=== PATIENT | female | born 1990 | race Caucasian/White ===

== ENCOUNTER → 2022-02-07 15:45 | Outpatient (CLI) | payer MEDICAID, SELFPAY | PROVIDERS: PCP Nurse Practitioner; Visit Provider Nurse Practitioner | DX: N12 Tubulo-interstitial nephritis, not specified as acute or chronic (principal) | CPT/HCPCS: 87086 ==

== ENCOUNTER → 2022-02-12 07:07 | Outpatient (CLI) | payer MEDICAID, SELFPAY | PROVIDERS: PCP Nurse Practitioner; Visit Provider Nurse Practitioner | DX: N12 Tubulo-interstitial nephritis, not specified as acute or chronic (principal) | CPT/HCPCS: 87086 ==

== ENCOUNTER → 2022-02-15 17:15 | Outpatient (CLI) | payer OTHER, SELFPAY ==
[2022-02-18 23:07] LABS: Neisseria gonorrhoeae, NAA Negative (Negative)
== END ==
PROVIDERS: PCP Family Medicine; Visit Provider Family Medicine
DX: R30.0 Dysuria (principal)
CPT/HCPCS: 87086; 87491; 87591

== ENCOUNTER → 2022-02-28 14:19 | Outpatient (CLI) | payer MEDICAID, SELFPAY ==
--- NOTE | 2022-02-28 14:19 | US_ITS ---
FINAL REPORT CLINICAL HISTORY: Pelvic pain FINDINGS: Transvaginal Ultrasound Technique: Transvaginal sonographic images of the pelvis were obtained. Findings: The uterus is normal in size. The endometrium is unremarkable. There are nabothian cysts in the cervix. The right ovary is normal size. The left ovary is normal size. There are small cysts or follicles in both ovaries. There is no significant free fluid. IMPRESSION: No acute process. Reviewed, Interpreted and Dictated by Gilbert Parisi MD Transcribed by Arslan Abarca Authenticated and . [facility]
== END ==
PROVIDERS: PCP Nurse Practitioner; Visit Provider Family Medicine
DX: R10.2 Pelvic and perineal pain (principal); R30.0 Dysuria
CPT/HCPCS: 76830

== ENCOUNTER → 2023-01-02 23:33 | Outpatient (CLI) | payer MEDICAID, SELFPAY ==
[2023-01-02 18:50] LABS: Basophils # 0.1 K/mm3 (0-0.2); Basophils % 0.5 % (0.1-2.0); Eosinophils # 0.2 K/mm3 (0.0-0.4); Eosinophils % 2.2 % (0.1-12.0); Hematocrit 38.6 % (37.0-47.0); Hemoglobin 12.2 g/dL (12.2-16.2); Lymphocytes # 2.4 K/mm3 (0.7-4.5); Mean Corpuscular HGB Conc 31.6 g/dL (31.8-35.4); Mean Corpuscular Hemoglobin 31.5 pg (27.0-31.2); Mean Corpuscular Volume 99.6 fl (81-99); Mean Platelet Volume 9.4 fl (7.4-10.4); Monocytes # 0.6 K/mm3 (0.1-1.0); Monocytes % 6.1 % (1.7-9.3); Neutrophils # 6.4 K/mm3 (1.8-7.8); Neutrophils % 66.1 % (37.0-80.0); Platelet Count 330 K/mm3 (142-424); Red Blood Count 3.88 M/mm3 (4.20-5.40); Red Cell Distribution Width 13.3 % (11.5-17.5); White Blood Count 9.7 K/mm3 (4.8-10.8)
[2023-01-02 18:55] LABS: Alanine Aminotransferase 24 U/L (12-78); Albumin Level 4.1 g/dl (3.5-5.0); Albumin/Globulin Ratio 1.6 (1.1-1.8); Alkaline Phosphatase 83 U/L (38-126); Anion Gap 11.4 mEq/L (5-15); Aspartate Amino Transferase 24 U/L (14-36); Bilirubin,Total 0.3 mg/dl (0.2-1.3); Blood Urea Nitrogen 10 mg/dl (7-17); Calcium 8.9 mg/dl (8.4-10.2); Carbon Dioxide 24 mmol/L (22.0-30.0); Chloride 108 mmol/L (98-107); Estimated Glomerular Filt Rate 98 ml/min (>60); GFR (African American) 118 ML/MIN (>60); Globulin 2.5 g/dL (1.3-3.2); Glucose 89 mg/dl (74-100); Potassium 4.4 mmoL/L (3.5-5.1); Sodium 139 mmol/L (136-145); Total Protein,Serum 6.6 g/dl (6.3-8.2)
[2023-01-02 19:09] LABS: 25-OH Vitamin D, Total 43.4 ng/mL (30-100)
[2023-01-02 19:25] LABS: Thyroid Stimulating Hormone 1.12 uIU/mL (0.465-4.68)
[2023-01-02 19:44] LABS: Vitamin B12 375 pg/mL (239-931)
[2023-01-06 16:06] LABS: Anti-Centromere B Antibodies <0.2 AI (0.0-0.9); Anti-DNA (DS) Ab Qn 2 IU/mL (0-9); Anti-Jo-1 <0.2 AI (0.0-0.9); Anti-Smith Antibody <0.2 AI (0.0-0.9); Antichromatin Antibodies <0.2 AI (0.0-0.9); Antiscleroderma-70 Antibodies <0.2 AI (0.0-0.9); RNP Antibodies <0.2 AI (0.0-0.9); Sjogren's Anti-SS-A <0.2 AI (0.0-0.9); Sjogren's Anti-SS-B <0.2 AI (0.0-0.9)
== END ==
PROVIDERS: PCP Nurse Practitioner; Visit Provider Nurse Practitioner
DX: R42 Dizziness and giddiness (principal); H53.9 Unspecified visual disturbance; L65.9 Nonscarring hair loss, unspecified; R20.2 Paresthesia of skin; Z13.1 Encounter for screening for diabetes mellitus; Z13.29 Encounter for screening for other suspected endocrine disorder; Z00.00 Encounter for general adult medical examination without abnormal findings; R55 Syncope and collapse
CPT/HCPCS: 80053; 82306; 82607; 83036; 84443; 85025; 86225; 86235

== ENCOUNTER → 2023-01-21 08:12 | Outpatient (CLI) | payer MEDICAID, SELFPAY ==
--- NOTE | 2023-01-21 08:14 | CA_ITS ---
APPROVED REPORT EXAM: Comprehensive 2D, Doppler, and color-flow Echocardiogram Exhibits Manager: Melissa Lew RVT Ht: 5 ft 1 in Wt: 137lbs BSA: 1.61 BP: 109/64 mmHg Indications: syncope,dizziness 2D Dimensions LVOT 2.13 cm (M/F) 1.5-2.5 LA Volume 42.40 mL LA Volume Index 26.34 mL/m2 (M/F) 16-34 M-Mode Dimensions RVDd 1.86 cm (0.9-2.6) LA Diam 2.87 cm (1.9-4.0) LVDd 4.47 cm (3.5-5.7) Ao Diam 2.81 cm (2.0-3.7) LVDs 3.34 cm (3.5-5.7) IVSd 0.77 cm (0.6-1.1) PWd 0.53 cm (0.6-1.1) EF (Teich) 50.10% FS 25.30% EDV (Teich) 91.00 mL TAPSE 1.38 (<1.7) ESV (Teich) 45.40 mL LV Diastology E Decel Time 150.00 (160-240 msec) E/A Ratio 0.9 MED E' 12.30 (< 7 cm/sec) E'/MED E' Ratio 5.54 (>14) LAT E' 19.70 (<10 cm/sec) E/LAT E' Ratio 3.46 (>14) Aortic Valve AO Peak GR. 3.80 mmHg Mitral Valve MV E Max Jean. 68.00 (40-130 cm/s) MV A Velocity 73.00 (40-130 cm/s) E/A Ratio 0.93 MV Decel. Time 150.00 (160-240 ms) MV PHT 44.00 ms Pulmonary Valve PV Peak Velocity 72.00 (50-150 cm/s) Tricuspid Valve TR P. Velocity 234.00 cm/s RAP Estimate 10.00 mmHg RVSP 32.00 mmHg Left Ventricle The left ventricle is normal size. Left ventricular systolic function is mildly decreased. There is normal left ventricular wall thickness. There is mild global hypokinesis. The left ventricular diastolic function is normal. LVEF is 45%. Right Ventricle The right ventricle is normal size. The right ventricular systolic function is normal. Atria The left atrium size is normal. The right atrium size is normal. There is no Doppler evidence of interatrial shunt. Aortic Valve The aortic valve is normal in structure. There is no aortic valvular stenosis. No aortic regurgitation is present. Mitral Valve The mitral valve is normal in structure. No evidence of mitral valve stenosis. There is no mitral valve regurgitation noted. Tricuspid Valve The tricuspid valve leaflets are thin and pliable. Trace tricuspid regurgitation. RVSP is normal. Pulmonic Valve The pulmonary valve is normal in structure. Trace pulmonic regurgitation. Great Vessels The aortic root is normal in size. The ascending aorta is not well visualized. IVC is normal in size and collapses >50% with inspiration. Pericardium There is no pericardial effusion. Other Information Study Quality: Fair Conclusion Mild reduction in LV systolic function (LVEF 45%) No significant valvulopathy. Electronically signed by : Magaly Gauthier, 01/21/2023 15:57:48
== END ==
PROVIDERS: PCP Nurse Practitioner; Visit Provider Nurse Practitioner
DX: R42 Dizziness and giddiness (principal); R55 Syncope and collapse
CPT/HCPCS: 93306

== ENCOUNTER → 2023-01-22 16:20 | Outpatient (CLI) | payer MEDICAID, SELFPAY | PROVIDERS: PCP Nurse Practitioner; Visit Provider Nurse Practitioner | DX: R42 Dizziness and giddiness (principal); R55 Syncope and collapse | CPT/HCPCS: 93225 ==

== ENCOUNTER → 2023-02-03 14:56 | Outpatient (CLI) | payer MEDICAID, SELFPAY ==
[2023-02-03 15:44] LABS: Basophils # 0.1 K/mm3 (0-0.2); Basophils % 0.6 % (0.1-2.0); Eosinophils # 0.3 K/mm3 (0.0-0.4); Eosinophils % 4.1 % (0.1-12.0); Hematocrit 43.1 % (37.0-47.0); Hemoglobin 13.8 g/dL (12.2-16.2); Lymphocytes # 2.5 K/mm3 (0.7-4.5); Lymphocytes % 30.7 % (10-50); Mean Corpuscular HGB Conc 31.9 g/dL (31.8-35.4); Mean Corpuscular Hemoglobin 31.5 pg (27.0-31.2); Mean Corpuscular Volume 98.6 fl (81-99); Mean Platelet Volume 7.8 fl (7.4-10.4); Monocytes # 0.4 K/mm3 (0.1-1.0); Monocytes % 5.3 % (1.7-9.3); Neutrophils # 4.8 K/mm3 (1.8-7.8); Neutrophils % 59.3 % (37.0-80.0); Platelet Count 316 K/mm3 (142-424); Red Blood Count 4.37 M/mm3 (4.20-5.40); Red Cell Distribution Width 13.1 % (11.5-17.5); White Blood Count 8.1 K/mm3 (4.8-10.8)
[2023-02-03 16:12] LABS: Chloride 107 mmol/L (98-107); Potassium 4.2 mmoL/L (3.5-5.1); Sodium 139 mmol/L (136-145)
[2023-02-03 16:15] LABS: Alanine Aminotransferase 32 U/L (12-78); Albumin Level 4.1 g/dl (3.5-5.0); Alkaline Phosphatase 84 U/L (38-126); Anion Gap 13.2 mEq/L (5-15); Aspartate Amino Transferase 29 U/L (14-36); Bilirubin,Indirect 0.3 mg/dL (0.0-0.9); Bilirubin,Total 0.3 mg/dl (0.2-1.3); Bilirubin,Unconjugated 0.3 mg/dL (0.0-1.1); Blood Urea Nitrogen 14 mg/dl (7-17); Calcium 9.5 mg/dl (8.4-10.2); Carbon Dioxide 23 mmol/L (22.0-30.0); Cholesterol 172 mg/dl (140-200); Estimated Glomerular Filt Rate 97 ml/min (>60); GFR (African American) 117 ML/MIN (>60); Glucose 95 mg/dl (74-100); Triglycerides 168 mg/dl (30-150); VLDL Cholesterol 34 mg/dL (0-40)
[2023-02-03 16:27] LABS: Direct LDL Cholesterol 91.29 mg/dL (100-129)
[2023-02-03 16:43] LABS: Free T4 (Free Thyroxine) 0.96 ng/dl (0.78-2.19)
[2023-02-03 16:58] LABS: Thyroid Stimulating Hormone 1.82 uIU/mL (0.465-4.68)
[2023-02-03 17:00] LABS: Chol/HDL Ratio 4.3 (1-3.5); HDL Cholesterol 40 mg/dl (40-60)
== END ==
PROVIDERS: PCP Nurse Practitioner; Visit Provider Nurse Practitioner
DX: R06.00 Dyspnea, unspecified (principal); R07.89 Other chest pain; R42 Dizziness and giddiness; R94.30 Abnormal result of cardiovascular function study, unspecified; I11.9 Hypertensive heart disease without heart failure; I63.9 Cerebral infarction, unspecified; E11.9 Type 2 diabetes mellitus without complications
CPT/HCPCS: 36415; 80048; 80061; 80076; 84439; 84443; 85025

== ENCOUNTER → 2023-02-06 07:24 | Outpatient (CLI) | payer MEDICAID, SELFPAY ==
--- NOTE | 2023-02-06 | CA_ITS ---
APPROVED REPORT Exam: Exercise Treadmill Technologist: Lilli Shaver, Ht: 5 ft 1 in Wt: 138 lbs BSA: 1.61 m2 HR: 66 bpm BP: 101/68 mmHg Rhythm: NSR Indications: Syncope - SOB AND CHEST PAIN Medical History Medications: BisOPROLOL,,,,, Allergies: CLINDAMYCIN Stress Test Details Test: Servando HR Resting HR: 88 bpm Max Heart Rate (APMHR): 188 bpm Max HR Achieved: 169 bpm Target HR (85% APMHR): 160 bpm % of APMHR: 90 Recovery HR: 78 bpm HR response to stress: Normal HR response to stress BP Resting BP: 101.0/68 mmHg Max BP: 130/68 mmHg Recovery BP: 107.0/55.0 mmHg BP response to stress: Normal blood pressure response to stress. ECG Resting ECG: NSR Stress EC.[address] depression Arrhythmia: None Recovery ECG: Return to baseline within 1 minute of recovery Recovery Arrhythmia: None Clinical Exercise duration: 10:16 min Highest Stage Achieved: Exercise capacity: 12.8 METs Overall Exercise Capacity for Age: Average Stress ECG Conclusion The patient was able to exercise for a total of 10 minutes, 16 seconds. She achieved a total of 12.8 METS. She has average exercise capacity compared to age and sex matched peers. She has normal HR and BP response to exercise. MAX HR: 169 % OF PM: 90% MAX B/P: 130/68 METS: 12.8 TEST STOPPED DUE TO: SOA, FATIGUE PT HAD DULL ACHING CP SOA 0.[address] DEPRESSION THAT RESOLVED RAPIDLY DURING RECOVERY CONCLUSION NORMAL ST RESPONSE TO EXERCISE. NORMAL EXERCISE CAPACITY. MYOVIEW IMAGES REPORTED SEPARATELY Test Summary REST . . . . . . . Standing REST . . . . . . . Sitting REST 05:26 0.0 0.0 88 . 101/ 68 . . Stage 1 01:00 10.0 1.7 104 . . . . Stage 1 02:00 10.0 1.7 108 . . . . Stage 1 03:00 10.0 1.7 111 . 120/ 70 . . Stage 2 01:00 12.0 2.5 116 . . . . Stage 2 02:00 12.0 2.5 118 . . . . Stage 2 03:00 12.0 2.5 115 . 122/ 62 . . Stage 3 01:00 14.0 3.4 126 . . . . Stage 3 02:00 14.0 3.4 132 . . . . Stage 3 03:00 14.0 3.4 142 . 130/ 68 . . Stage 4 01:00 16.0 4.2 165 . . . . Stage 4 01:16 16.0 4.2 169 . . . Stop exercise at 10:16 RECOVERY 01:00 0.0 0.0 121 . . . . RECOVERY 02:00 0.0 0.0 79 . . . . RECOVERY 03:00 0.0 0.0 82 . 108/ 48 . . RECOVERY 04:00 0.0 0.0 83 . 117/ 54 . . RECOVERY 05:00 0.0 0.0 77 . 107/ 55 . . RECOVERY 05:18 0.0 0.0 78 . 107/ 55 . . Electronically signed by : Magaly Gauthier, 02/10/2023 00:34:14
--- NOTE | 2023-02-06 07:24 | NM_ITS ---
APPROVED REPORT Exam: Nuclear Stress Test Indication: chest pain..soa..palpitations..fatigue..tobacco use Patient Location: Outpatient Stress Tech: Lilli Shaver [place] Tech:Garima SheldonFIFI RT(R)(N) Ht: 5 ft 1 in Wt: 137 lbs Bra Size: 34d HR: 88 bpm BSA: 1.61 m2 Rhythm: NSR TID: 1.12 BMI: 25.8 History: chest pain..soa..palpitations..fatigue..tobacco use Procedure: Patient exercised on Servando protocol 10:16 minutes and sec, resting heart rate 88 bpm, resting blood pressure 101/68 mmHg, with exercise maximum heart rate achived was 169 bpm which is 90 % of the maximum predicted heart rate and blood pressure was 130/68 mmHg. Test was stopped due to fatigue. Patient denied any complaint of chest pain. Patient has Average exercise capacity, achieved 12.8 METs of workload on treadmill, the blood pressure response to exercise was Normal. Cardiac Stress and Resting SPECT Images: Cardiac Stress and Resting SPECT images were obtained using technetium 99m Myoview 30.8 mCi stress and 10.87 mCi at rest. Resting and stress imaging in supine and prone positions demonstrate no evidence of fixed or reversible perfusion defects. Gated imaging demonstrates low-normal global and regional LV systolic function. LVEF is calculated at 51%. Conclusion: No evidence of fixed or reversible perfusion defects. Gated imaging demonstrates low-normal global and regional LV systolic function. LVEF is calculated at 51%. Electronically signed by : Magaly Gauthier, 02/10/2023 00:36:07
== END ==
PROVIDERS: PCP Nurse Practitioner; Visit Provider Nurse Practitioner
DX: R07.89 Other chest pain (principal); R42 Dizziness and giddiness; R94.30 Abnormal result of cardiovascular function study, unspecified
CPT/HCPCS: 78452; 93017; A9502

== ENCOUNTER → 2023-04-18 09:35 | Outpatient (CLI) | payer OTHER, SELFPAY ==
--- NOTE | 2023-04-18 09:36 | MR_ITS ---
APPROVED REPORT Administrative Liaison: CLINICAL INDICATION Cardiomyopathy evaluation (LVEF 45% on TTE) TECHNIQUE Image Acquisition: Cardiac magnetic resonance (CMR) was performed on Siemens Espree MRI 1.5T scanner. Software platform sequences were performed using the Siemens [employer] MR B19 platform. A set of three-plane, low-resolution, large [id number]-teih localizers were initially acquired. Then axial, coronal, sagittal TrueFISP, as well as axial HASTE images, were obtained. These were followed by gated TrueFISP breathold cinematic sequences obtained in the short axis with 8 mm slices and 2 mm gaps, 2-chamber (vertical long axis), 3-chamber, 4-chamber (horizontal long axis). A bolus of contrast was injected intravenously with first-pass sequences obtained in the short axis and four-chamber planes. After approximately 10 minutes, a TI interventional tech sequence was performed to determine the optimal TI time. Using the optimized TI time, delayed contrast enhancement segmented inversion???recovery TurboFLASH sequences were obtained in the short axis, 2-chamber, 3-chamber, and 4-chamber projections. 2D-velocity phase mapping was performed. Functional parameters were calculated by offline analysis on an independent workstation ([employer], [employer]). Contrast: ProHance??? (Gadoteridol) FINDINGS MORPHOLOGY AND FUNCTION Left ventricle: The left ventricle is normal in size. The indexed left ventricular end-diastolic volume (LVEDVi) is 80 ml/m2 (reference range 57-105 ml/m2 in males, 56-96 ml/m2 in females). Normal left ventricular systolic function is present. There is normal left ventricular wall thickness. There are no regional wall motion abnormalities noted. LVEF is calculated at 63.8% (reference range 57-77%). Right ventricle: The right ventricle is normal in size. The indexed right ventricular end-diastolic volume (RVEDVi) is 72 ml/m2 (reference range 61-121 ml/m2 in males, 48-112 ml/m2 in females). Normal right ventricular systolic function is present. RVEF is calculated at 53% (reference range 52-72% in males, 51-71% in females). Atria: The left atrium is normal in size. The maximum indexed left atrial volume is 25 ml/m2 (reference range 26-52 ml/m2 in males, 27-53 ml/m2 in females). The right atrium is normal in size. The maximum indexed right atrial volume is 21 ml/m2 (reference range 18-90 ml/m2). Aorta: The diameter of the aortic annulus is normal, measuring 25 mm (coronal view reference range 21-30 mm in males, 19-27 mm in females). The diameter of the aortic sinus is normal, measuring 28 mm (coronal view reference range 25-42 mm in males, 24-36 mm in females). The diameter of the sinotubular junction is normal, measuring 23 mm (coronal view reference range 18-32 mm in males, 18-28 mm in females). The diameters of the ascending and descending thoracic aorta are normal. Main pulmonary artery: The main pulmonary artery diameter is normal. Pericardium: The pericardial thickness is normal. The pericardial thickness measures 1.9 cm (normal < 4.0 cm). There is no pericardial effusion. VALVES The valvular morphologies in the visualized sequences appear normal. There is no significant valvular stenosis or regurgitation of the mitral, aortic, tricuspid, or pulmonic valve noted visually. Systolic anterior motion of the mitral valve is not visualized. Ratio of pulmonary to systemic flow, Qp:Qs ratio = 0.9 (normal < or = 1.2), demonstrating no evidence of hemodynamically significant shunt. TISSUE CHARACTERIZATION Resting Perfusion: Normal myocardial blood flow at rest. No evidence of resting hypoperfusion. Myocardial Fibrosis and/or edema: Normal gadolinium kinetics are present. No evidence of late gadolinium enhancement is noted, consistent with
== END ==
LOC: RAD 09:36
PROVIDERS: PCP Nurse Practitioner; Visit Provider Nurse Practitioner
DX: R07.89 Other chest pain (principal); R42 Dizziness and giddiness; R55 Syncope and collapse; R94.30 Abnormal result of cardiovascular function study, unspecified
CPT/HCPCS: 75561; A9576

== ENCOUNTER 2023-07-07 20:37 | Outpatient (CLI) | payer OTHER, SELFPAY | END 2023-07-07 23:59 | LOC: LAB.DROPOF 20:37 | PROVIDERS: PCP Nurse Practitioner; Visit Provider Nurse Practitioner | DX: R30.0 Dysuria (principal) | CPT/HCPCS: 87086 ==

== ENCOUNTER 2023-08-26 21:00 | Outpatient (CLI) | payer OTHER, SELFPAY ==
[2023-08-26 19:29] LABS: Basophils # 0.1 K/mm3 (0-0.2); Basophils % 1.6 % (0.1-2.0); Eosinophils # 0.1 K/mm3 (0.0-0.4); Eosinophils % 1.9 % (0.1-12.0); Hematocrit 45.3 % (37.0-47.0); Hemoglobin 14.5 g/dL (12.2-16.2); Lymphocytes # 1.6 K/mm3 (0.7-4.5); Lymphocytes % 26.4 % (10-50); Mean Corpuscular Hemoglobin 32.8 pg (27.0-31.2); Mean Corpuscular Volume 102.4 fl (81-99); Mean Platelet Volume 10.1 fl (7.4-10.4); Monocytes # 0.3 K/mm3 (0.1-1.0); Monocytes % 5.2 % (1.7-9.3); Neutrophils # 3.9 K/mm3 (1.8-7.8); Neutrophils % 64.9 % (37.0-80.0); Platelet Count 354 K/mm3 (142-424); Red Blood Count 4.42 M/mm3 (4.20-5.40); White Blood Count 6.1 K/mm3 (4.8-10.8)
[2023-08-26 19:34] LABS: Chloride 108 mmol/L (98-107)
[2023-08-26 19:35] LABS: Potassium 4.1 mmoL/L (3.5-5.1); Sodium 139 mmol/L (136-145)
[2023-08-26 19:37] LABS: Alanine Aminotransferase 26 U/L (12-78); Alkaline Phosphatase 85 U/L (38-126); Anion Gap 10.1 mEq/L (5-15); Aspartate Amino Transferase 27 U/L (14-36); Bilirubin,Total 0.4 mg/dl (0.2-1.3); Blood Urea Nitrogen 11 mg/dl (7-17); Carbon Dioxide 25 mmol/L (22.0-30.0); Estimated Glomerular Filt Rate 97 ml/min (>60); GFR (African American) 117 ML/MIN (>60)
[2023-08-26 19:38] LABS: Albumin Level 4.5 g/dl (3.5-5.0); Albumin/Globulin Ratio 1.7 (1.1-1.8); Calcium 9.3 mg/dl (8.4-10.2); Globulin 2.6 g/dL (1.3-3.2); Glucose 95 mg/dl (74-100); Total Protein,Serum 7.1 g/dl (6.3-8.2)
[2023-08-26 19:44] LABS: C-Reactive Protein 0.8 mg/L (0-4)
[2023-08-26 19:53] LABS: 25-OH Vitamin D, Total 42.7 ng/mL (30-100)
[2023-08-26 20:05] LABS: Erythrocyte Sedimentation Rate 12 mm/hr (0-20)
[2023-08-26 21:44] LABS: Vitamin B12 450 pg/mL (239-931)
[2023-08-28 14:13] LABS: Anti-Centromere B Antibodies <0.2 AI (0.0-0.9); Anti-DNA (DS) Ab Qn 1 IU/mL (0-9); Anti-Jo-1 <0.2 AI (0.0-0.9); Anti-Smith Antibody <0.2 AI (0.0-0.9); Antichromatin Antibodies <0.2 AI (0.0-0.9); Antiscleroderma-70 Antibodies <0.2 AI (0.0-0.9); RNP Antibodies <0.2 AI (0.0-0.9); Sjogren's Anti-SS-A <0.2 AI (0.0-0.9); Sjogren's Anti-SS-B <0.2 AI (0.0-0.9)
== END 2023-08-26 23:59 ==
LOC: LAB.DROPOF 21:00
PROVIDERS: PCP Nurse Practitioner; Visit Provider Nurse Practitioner
DX: G50.0 Trigeminal neuralgia (principal); R51.9 Headache, unspecified
CPT/HCPCS: 80053; 82306; 82607; 84443; 85025; 85651; 86140; 86225; 86235

== ENCOUNTER 2023-09-04 09:51 | Outpatient (CLI) | payer OTHER, SELFPAY ==
--- NOTE | 2023-09-04 09:54 | XR_ITS ---
FINAL REPORT CLINICAL HISTORY: pre-syncope, leukocytosis FINDINGS: TWO-VIEW CHEST The heart size is normal. The mediastinum is normal. The lungs are clear. There is no pneumothorax. IMPRESSION: No acute cardiopulmonary process. Reviewed, Interpreted and Dictated by Gilbert Parisi MD Transcribed by Nazia Roche Authenticated and [facility]
[2023-09-04 10:20] LABS: Adenovirus,PCR Not Detected (NotDetected); Coronavirus 19, PCR Not Detected (NotDetected); Coronavirus NL63 Not Detected (NotDetected); Coronavirus OC43 Not Detected (NotDetected); Coronovirus HKU1,PCR Not Detected (NotDetected); Human Metapneumovirus Not Detected (NotDetected); Influenza A, PCR Not Detected (NotDetected); Influenza AH1, 2009 Not Detected (NotDetected); Influenza AH1, PCR Not Detected (NotDetected); Influenza AH3,PCR Not Detected (NotDetected); Influenza B, PCR Not Detected (NotDetected); Parainfluenza 1, PCR Not Detected (NotDetected); Parainfluenza 2, PCR Not Detected (NotDetected); Parainfluenza 3, PCR Not Detected (NotDetected); Parainfluenza 4, PCR Not Detected (NotDetected); Respiratory Syncytial Virus Not Detected (NotDetected); Rhinovirus/Enterovirus Not Detected (NotDetected)
[2023-09-04 10:32] LABS: Basophils # 0.2 K/mm3 (0-0.2); Basophils % 1.3 % (0.1-2.0); Eosinophils # 0.3 K/mm3 (0.0-0.4); Eosinophils % 1.7 % (0.1-12.0); Hematocrit 46.6 % (37.0-47.0); Hemoglobin 14.8 g/dL (12.2-16.2); Lymphocytes # 4.8 K/mm3 (0.7-4.5); Lymphocytes % 31.5 % (10-50); Mean Corpuscular HGB Conc 31.8 g/dL (31.8-35.4); Mean Corpuscular Hemoglobin 32.6 pg (27.0-31.2); Mean Corpuscular Volume 102.6 fl (81-99); Monocytes # 0.9 K/mm3 (0.1-1.0); Monocytes % 5.7 % (1.7-9.3); Neutrophils # 9.2 K/mm3 (1.8-7.8); Neutrophils % 59.7 % (37.0-80.0); Platelet Count 361 K/mm3 (142-424); Red Blood Count 4.54 M/mm3 (4.20-5.40); Red Cell Distribution Width 13.8 % (11.5-17.5); White Blood Count 15.3 K/mm3 (4.8-10.8)
[2023-09-04 10:37] LABS: MANUAL DIFFERENTIAL MANUAL DIFFERENTIAL (MANUAL DIFF)
[2023-09-04 10:48] LABS: Lymphocytes % 36 % (10-50); Monocytes % 7 % (2-9); Neutrophils % 57 % (42-76); Total Cells Counted 100
[2023-09-04 10:49] LABS: Platelet Estimate Normal; RBC Morphology Normal
[2023-09-04 11:01] LABS: Erythrocyte Sedimentation Rate 5 mm/hr (0-20)
[2023-09-04 11:10] LABS: Chloride 106 mmol/L (98-107); Potassium 4.1 mmoL/L (3.5-5.1); Sodium 137 mmol/L (136-145)
[2023-09-04 11:12] LABS: Blood Urea Nitrogen 15 mg/dl (7-17); Estimated Glomerular Filt Rate 83 ml/min (>60); GFR (African American) 101 ML/MIN (>60)
[2023-09-04 11:13] LABS: Alanine Aminotransferase 41 U/L (12-78); Albumin Level 3.6 g/dl (3.5-5.0); Albumin/Globulin Ratio 1.4 (1.1-1.8); Alkaline Phosphatase 87 U/L (38-126); Anion Gap 7.1 mEq/L (5-15); Aspartate Amino Transferase 25 U/L (14-36); Bilirubin,Total 0.3 mg/dl (0.2-1.3); Calcium 8.9 mg/dl (8.4-10.2); Carbon Dioxide 28 mmol/L (22.0-30.0); Globulin 2.5 g/dL (1.3-3.2); Glucose 90 mg/dl (74-100); Magnesium 2.1 mg/dl (1.6-2.3); Phosphorous 4.1 mg/dl (2.5-4.5); Total Protein,Serum 6.1 g/dl (6.3-8.2)
[2023-09-04 11:18] LABS: C-Reactive Protein 0.3 mg/L (0-4)
[2023-09-04 12:12] LABS: Coronavirus 229E Detected (NotDetected)
[2023-09-05 16:34] LABS: Lyme Ab CIA Negative (Negative)
== END 2023-09-04 23:59 ==
LOC: LAB 09:52
PROVIDERS: PCP Nurse Practitioner; Visit Provider Nurse Practitioner
DX: R55 Syncope and collapse (principal); D72.829 Elevated white blood cell count, unspecified; Z79.899 Other long term (current) drug therapy
CPT/HCPCS: 36415; 71046; 80053; 83735; 84100; 85007; 85025; 85651; 86140; 86618; 87632; 87635

== ENCOUNTER 2023-12-01 14:32 | Outpatient (CLI) | payer OTHER, SELFPAY ==
[2023-12-01 14:40] LABS: MANUAL DIFFERENTIAL MANUAL DIFFERENTIAL (MANUAL DIFF)
[2023-12-01 15:19] LABS: Basophils # 0.1 K/mm3 (0-0.2); Basophils % 1.1 % (0.1-2.0); Eosinophils # 0.3 K/mm3 (0.0-0.4); Eosinophils % 2.7 % (0.1-12.0); Hematocrit 38.9 % (37.0-47.0); Hemoglobin 12.7 g/dL (12.2-16.2); Lymphocytes # 2.1 K/mm3 (0.7-4.5); Lymphocytes % 23.2 % (10-50); Mean Corpuscular HGB Conc 32.5 g/dL (31.8-35.4); Mean Corpuscular Volume 101.3 fl (81-99); Mean Platelet Volume 8.5 fl (7.4-10.4); Monocytes # 0.6 K/mm3 (0.1-1.0); Monocytes % 6.2 % (1.7-9.3); Neutrophils # 6.1 K/mm3 (1.8-7.8); Neutrophils % 66.9 % (37.0-80.0); Platelet Count 313 K/mm3 (142-424); Red Blood Count 3.84 M/mm3 (4.20-5.40); Red Cell Distribution Width 14.2 % (11.5-17.5); White Blood Count 9.1 K/mm3 (4.8-10.8)
[2023-12-01 15:45] LABS: Eosinophils % 2 % (0-3); Lymphocytes % 31 % (10-50); Monocytes % 5 % (2-9); Neutrophils % 58 % (42-76); Platelet Estimate Normal; Total Cells Counted 100
[2023-12-01 15:46] LABS: Anisocytosis 1+; Macrocytosis 1+
[2023-12-01 15:54] LABS: C-Reactive Protein 4.2 mg/L (0-4)
[2023-12-01 15:56] LABS: Erythrocyte Sedimentation Rate 15 mm/hr (0-20)
[2023-12-01 16:57] LABS: Vitamin B12 409 pg/mL (239-931)
== END 2023-12-01 23:59 | disposition home or self-care (01) ==
LOC: LAB 14:36
PROVIDERS: PCP Nurse Practitioner; Visit Provider Specialist
DX: G50.0 Trigeminal neuralgia (principal); D72.829 Elevated white blood cell count, unspecified; D75.89 Other specified diseases of blood and blood-forming organs
CPT/HCPCS: 36415; 82607; 82746; 85007; 85014; 85018; 85048; 85049; 85651; 86140; 87529

== ENCOUNTER 2023-12-16 16:37 | Outpatient (CLI) | payer BC, SELFPAY ==
[2023-12-16 19:04] LABS: Alanine Aminotransferase 34 U/L (12-78); Albumin Level 4.6 g/dl (3.5-5.0); Albumin/Globulin Ratio 1.6 (1.1-1.8); Alkaline Phosphatase 90 U/L (38-126); Anion Gap 10.6 mEq/L (5-15); Aspartate Amino Transferase 29 U/L (14-36); Bilirubin,Total 0.4 mg/dl (0.2-1.3); Blood Urea Nitrogen 12 mg/dl (7-17); Calcium 9.6 mg/dl (8.4-10.2); Carbon Dioxide 28 mmol/L (22.0-30.0); Chloride 105 mmol/L (98-107); Estimated Glomerular Filt Rate 83 ml/min (>60); GFR (African American) 101 ML/MIN (>60); Globulin 2.8 g/dL (1.3-3.2); Glucose 90 mg/dl (74-100); Potassium 3.6 mmoL/L (3.5-5.1); Sodium 140 mmol/L (136-145); Total Protein,Serum 7.4 g/dl (6.3-8.2)
[2023-12-16 19:34] LABS: Thyroid Stimulating Hormone 1.54 uIU/mL (0.465-4.68)
[2023-12-16 22:38] LABS: Free T4 (Free Thyroxine) 0.92 ng/dl (0.78-2.19)
[2023-12-18 13:12] LABS: Anti-Centromere B Antibodies <0.2 AI (0.0-0.9); Anti-DNA (DS) Ab Qn 1 IU/mL (0-9); Anti-Jo-1 <0.2 AI (0.0-0.9); Anti-Smith Antibody <0.2 AI (0.0-0.9); Antichromatin Antibodies <0.2 AI (0.0-0.9); Antiscleroderma-70 Antibodies <0.2 AI (0.0-0.9); RNP Antibodies <0.2 AI (0.0-0.9); Sjogren's Anti-SS-A <0.2 AI (0.0-0.9); Sjogren's Anti-SS-B <0.2 AI (0.0-0.9)
== END 2023-12-16 23:59 | disposition home or self-care (01) ==
LOC: LAB.DROPOF 12-17 11:20
PROVIDERS: PCP Nurse Practitioner; Visit Provider Nurse Practitioner
DX: G50.0 Trigeminal neuralgia (principal); R20.2 Paresthesia of skin
CPT/HCPCS: 80053; 84439; 84443; 86225; 86235

== ENCOUNTER 2023-12-23 14:07 | Outpatient (CLI) | payer BC, SELFPAY ==
[2023-12-23 14:59] LABS: Basophils # 0.1 K/mm3 (0-0.2); Basophils % 1.1 % (0.1-2.0); Eosinophils # 0.3 K/mm3 (0.0-0.4); Eosinophils % 3.7 % (0.1-12.0); Hematocrit 38.4 % (37.0-47.0); Hemoglobin 12.3 g/dL (12.2-16.2); Lymphocytes # 1.5 K/mm3 (0.7-4.5); Lymphocytes % 18.5 % (10-50); Mean Corpuscular HGB Conc 32.1 g/dL (31.8-35.4); Mean Corpuscular Hemoglobin 32.5 pg (27.0-31.2); Mean Corpuscular Volume 101.3 fl (81-99); Mean Platelet Volume 8.2 fl (7.4-10.4); Monocytes # 0.4 K/mm3 (0.1-1.0); Monocytes % 5.1 % (1.7-9.3); Neutrophils # 5.9 K/mm3 (1.8-7.8); Neutrophils % 71.6 % (37.0-80.0); Platelet Count 337 K/mm3 (142-424); Red Blood Count 3.79 M/mm3 (4.20-5.40); Red Cell Distribution Width 13.7 % (11.5-17.5); White Blood Count 8.3 K/mm3 (4.8-10.8)
[2023-12-25 14:18] LABS: Peripheral Smear Review Scanned Result
== END 2023-12-23 23:59 | disposition home or self-care (01) ==
LOC: LAB 14:08
PROVIDERS: PCP Nurse Practitioner; Visit Provider Internal Medicine Medical Oncology
DX: D75.89 Other specified diseases of blood and blood-forming organs (principal)
CPT/HCPCS: 36415; 85025

== ENCOUNTER 2024-01-01 07:00 | Outpatient (CLI) | payer BC, SELFPAY ==
--- NOTE | 2024-01-01 07:33 | MR_ITS ---
FINAL REPORT TECHNIQUE: Multiplanar MR, without and with contrast administration CLINICAL HISTORY: headache, neuralgia, BUE/BLE parasthesias COMPARISON: 08/27/2023 FINDINGS: Diffusion sequences show no signal abnormalities to indicate acute infarct. The brain parenchyma is homogeneous with normal signal pattern. Ventricles are normal. No edema or hemorrhage is seen. Major vessel flow-voids are intact. Following contrast administration, there is no mass or abnormal parenchymal enhancement. IMPRESSION: Unremarkable MR evaluation of the brain, without and with contrast Reviewed, Interpreted and Dictated by Sheba Dick MD Transcribed by Nazia Roche Authenticated and [facility]
[2024-01-01] MEDS: GADOTERIDOL INJ 20ML SYRINGE 14 ML IV (08:09)
[2024-01-01] MEDS: SODIUM CHLORIDE 0.9% 10ML SYR (RAD ONLY) 10 ML IV ×2 (08:09→09:23)
--- NOTE | 2024-01-01 09:00 | CT_ITS ---
FINAL REPORT TECHNIQUE: Oral and IV contrast enhanced exam This study was performed with techniques to keep radiation doses as low as reasonably achievable, (ALARA). Individualized dose reduction techniques using automated exposure control or adjustment of mA and/or kV according to the patient's size were employed. CLINICAL HISTORY: abdominal pain, nausea COMPARISON: None FINDINGS: Abdomen: Lung bases are clear. The gallbladder has been surgically resected. Liver has an unremarkable CT appearance. The spleen, pancreas and adrenal glands are unremarkable. Kidneys show no mass or obstruction. No bowel obstruction or fluid collection is seen. Pelvis: The appendix is borderline enlarged, measuring up to 7.5 mm in diameter. Would favor this is a normal variant given the lack of inflammatory change surrounding the appendix. The uterus is mildly heterogeneous, and likely small fibroids are present. The cervix is enlarged measuring up to 49 mm in diameter. Would consider Pap smear if one has not been performed recently. Pelvic bowel loops are unremarkable. No fluid collection or adenopathy is seen. IMPRESSION: Appendix borderline enlarged, measuring up to 7.5 mm, favor normal variant given lack of adjacent inflammatory change. Bowel appears unremarkable. Cervical enlargement up to 49 mm in diameter, consider a Pap smear if one has not been performed recently. Reviewed, Interpreted and Dictated by Sheba Dick MD Transcribed by Starla Lomas Authenticated and [facility]
--- NOTE | 2024-01-01 09:21 | HMH.ITSTN ---
Patient was in waiting room for a few minutes before order put in. Came from MRI, but corporation secretary did not put order in or let me know patient was here.
[2024-01-01] MEDS: IOPAMIDOL-370 (76%);100ML BOTTLE 75 ML IV (09:23)
== END 2024-01-01 23:59 | disposition home or self-care (01) ==
LOC: RAD 07:00
PROVIDERS: PCP Nurse Practitioner; Visit Provider Nurse Practitioner
DX: G50.0 Trigeminal neuralgia (principal); R20.2 Paresthesia of skin; R10.9 Unspecified abdominal pain
CPT/HCPCS: 70553; 74177; A9576; Q9967

== ENCOUNTER → 2024-01-26 07:19 | Outpatient (CLI) | payer BC, SELFPAY | LOC: SL 07:20 | PROVIDERS: PCP Nurse Practitioner; Visit Provider Physician Assistant | DX: G47.33 Obstructive sleep apnea (adult) (pediatric) (principal) | CPT/HCPCS: G0399 ==

== ENCOUNTER 2024-02-05 16:12 | Outpatient (CLI) | payer BC, SELFPAY ==
[2024-02-12 03:45] LABS: Arsenic, Blood 4 ug/L (0-9); Lead, Blood <1.0 ug/dL (0.0-3.4); Mercury, Blood <1.0 ug/L (0.0-14.9)
== END 2024-02-05 23:59 | disposition home or self-care (01) ==
LOC: LAB 16:13
PROVIDERS: PCP Nurse Practitioner; Visit Provider Nurse Practitioner
DX: R20.2 Paresthesia of skin (principal); R23.4 Changes in skin texture; R55 Syncope and collapse
CPT/HCPCS: 82175; 83655; 83825

== ENCOUNTER 2024-02-15 19:18 | Emergency (ER) | payer BC, SELFPAY ==
[2024-02-15 19:19] VITALS: BP 114/65; PULSE 81; RESP 18; TEMP 36.4; O2SAT 94; BMI 28.9
--- NOTE | 2024-02-15 19:38 | ECG_ITS ---
APPROVED REPORT Exam: Resting ECG HR:76 bpm ECG Measurements Heart Rate 76 AXES SD 163 P 77 QRSd 97 QRS 70 QT 385 T 72 QTc 416 Conclusion Sinus rhythm Electronically signed by : OSMAN YUNG, 02/15/2024 23:10:33
--- NOTE | 2024-02-15 19:39 | CT_ITS ---
PROCEDURE INFORMATION: Exam: CT Abdomen And Pelvis With Contrast Exam date and time: 02/15/2024 8:21 PM Age: 34 years old Clinical indication: Abdominal pain; Additional info: Severe abd pain TECHNIQUE: Imaging protocol: Computed tomography of the abdomen and pelvis with contrast. Radiation optimization: All CT scans at this facility use at least one of these dose optimization techniques: automated exposure control; mA and/or kV adjustment per patient size (includes targeted exams where dose is matched to clinical indication); or iterative reconstruction. Contrast material: ISOVUE; Contrast volume: 75 ml; Contrast route: IV; COMPARISON: CT ABDOMEN PELVIS W CON 01/01/2024 9:07 AM FINDINGS: Lungs: Clear basilar lung parenchyma. Pleural spaces: No pleural fluid. Heart: Normal heart size. Liver: Normal configuration. Homogeneous parenchyma. Gallbladder and biliary ducts: Prior cholecystectomy. No biliary tree dilation or high-density retained stones appreciated. Pancreas: Normal. No ductal dilation. Spleen: Normal. No splenomegaly. Adrenal glands: Normal configuration. Kidneys and ureters: Bilateral intrarenal stones. No renal obstruction, solid mass, or features of pyelonephritis. Stomach and bowel: Postprandial stomach. Normal caliber small bowel. Distal colonic is decompressed without significant mucosal enhancement or mural thickening. Appendix: Appendix is mildly dilated without significant inflammatory change, stable in appearance from prior. Intraperitoneal space: No free air. No significant fluid collection. Vasculature: Normal caliber arterial structures. Lymph nodes: No enlarged lymph nodes. Urinary bladder: Unremarkable as visualized. Reproductive: Physiologic appearance for age. Bones/joints: No fracture or destructive lesion. Soft tissues: Unremarkable. IMPRESSION: 1. There is mild dilation of the appendix, but appearance is stable from prior exam. No periappendiceal inflammatory change. 2. Decompressed distal colon is nonspecific but can be seen with early colitis. 3. Bilateral intrarenal stones, but no ureteral stones are evident.
[2024-02-15 19:47] LABS: Appearance,Urine CLEAR (Clear); Bilirubin,Urine Negative (Negative); Blood, Urine Negative (Negative); Color,Urine YELLOW (Yellow); Glucose,Urine (UA) Negative (Negative); Ketones,Urine Negative (Negative); Leukocyte Esterase,Urine Negative (Negative); Microscopic, Urine URINE MICROSCOPIC (MICROSCOPIC); Nitrate,Urine Negative (Negative); PH,Urine 6.5 (5.0-8.5); Protein,Urine Negative (Negative); Urobilinogen,Urine 0.2 EU/dl (0.2)
[2024-02-15] MEDS: ONDANSETRON 4MG/2ML VIAL 4 MG IV (19:48)
[2024-02-15] MEDS: MORPHINE 4MG/ML SYRINGE 4 MG IV (19:49)
[2024-02-15 19:50] LABS: Basophils # 0.1 K/mm3 (0-0.2); Basophils % 1.1 % (0.1-2.0); Eosinophils # 0.3 K/mm3 (0.0-0.4); Eosinophils % 2.8 % (0.1-12.0); Hematocrit 41.5 % (37.0-47.0); Lymphocytes # 2.2 K/mm3 (0.7-4.5); Lymphocytes % 22.7 % (10-50); Mean Corpuscular HGB Conc 31.4 g/dL (31.8-35.4); Mean Corpuscular Hemoglobin 32.4 pg (27.0-31.2); Mean Corpuscular Volume 103.3 fl (81-99); Monocytes # 0.6 K/mm3 (0.1-1.0); Monocytes % 5.6 % (1.7-9.3); Neutrophils # 6.7 K/mm3 (1.8-7.8); Neutrophils % 67.9 % (37.0-80.0); Platelet Count 327 K/mm3 (142-424); Red Blood Count 4.02 M/mm3 (4.20-5.40); Red Cell Distribution Width 13.5 % (11.5-17.5); White Blood Count 9.9 K/mm3 (4.8-10.8)
[2024-02-15 19:52] LABS: Albumin Level 4.4 g/dl (3.5-5.0); Chloride 110 mmol/L (98-107); Sodium 140 mmol/L (136-145)
[2024-02-15 19:53] LABS: Potassium 3.7 mmoL/L (3.5-5.1)
--- NOTE | 2024-02-15 19:54 | ED_ITS ---
Discharge Plan Disposition Patient Disposition: Home, Self-Care Prescriptions Prescriptions: New esomeprazole magnesium 20 mg capsule,delayed release(DR/EC) 20 mg PO DAILY 42 Days Qty: 42 1RF No Action carbamazepine 100 mg tablet,chewable 300 mg PO DAILY MDD 300 mg Qty: 120 4RF Rx Instructions: 100 mg po qam and 200 mg po qhs bisoprolol fumarate 5 mg tablet 2.5 mg PO DAILY 30 Days Qty: 30 2RF Referrals Follow up/Referrals: Bailee Spencer APRN [Primary Care Provider] - See instructions Activity Restrictions/Add. Instructions Additional Instructions/Restrictions: Call your family doctor to establish care for this visit to the emergency department and schedule follow-up within 48 hours to ensure improvement. If you have any worsening of your condition or any other concerning signs or symptoms, return to the emergency department or your primary care doctor for further evaluation. Acid medication each night for the next 6 weeks while trying to avoid NSAIDs, alcohol, carbonated beverages, and caffeine. Clinical Impressions Clinical Impression: Acute epigastric pain Instructions Patient Instructions: DI for Acute Abdominal Pain Print Language Print Language: Austrian Discharge ED Provider: Pj Maya General Adult HPI General Chief complaint: Abdominal Pain Stated complaint: abd pain, diarrhea Time Seen by Provider: 02/15/24 19:27 Mode of Arrival: Ambulatory Source of Information: Patient Limitations: No Limitations Description of Symptoms (Recalled from ER Triage Doc. by RN): Patient presented to the ED for abd pain. Patient states around 1300 today after eating she suddently started having diarrhea and abd pain but shortly after eased up and went away. Around 1700, patient states the pain came back and was worse rating 10/10 sharp pain but intermittent about every 5-10 minutes. Abd pain is epigastric area and radiates to left side. No N/V. History of Present Illness HPI narrative: Please note that above description of symptoms, in this electronic medical record under categorization of recalled from ER triage doctor by RN are reflective of an initial nursing assessment, however, is not reflective of my full history and physical exam that was personally taken and clarified. Consequentially, this preceding description of symptoms, which may include the patient's categorized chief complaint in the EMR, do not reflect my personal clinical impression, and the ultimate description of history of present illness and patient stated complaints should be deferred to this section of the note. Unless stated otherwise or congruent with this section of the note, additional signs, symptoms, or incongruence should be interpreted as inaccurate with my clinical impression. Related Data Previous Rx's ?Medication ?Instructions ?Recorded carbamazepine 100 mg chewable 300 mg (3 x 100 mg) PO DAILY 12/01/23 tablet Trigeminal neuralgia #120 tabs bisoprolol fumarate 5 mg tablet 2.5 mg (1/2 x 5 mg) PO DAILY 30 12/24/23 days #30 tabs esomeprazole magnesium 20 mg 20 mg PO DAILY 6 weeks #42 caps 02/15/24 capsule,delayed release Allergies Allergy/AdvReac Type Severity Reaction Status Date / Time clindamycin AdvReac Verified 02/05/24 15:57 [facility] Disclaimer: The information contained in this section may have been updated after the patient was seen, as this information can be updated by other users. Medical History Peeling skin Complaint of paresthesia Unexplained night sweats SOSA (obstructive sleep apnea) Palpitations Arm paresthesia, right Arm paresthesia, left Pre-syncope Leukocytosis Trigeminal neuralgia of right side of face Cardiac LV ejection fraction of 40-49% Episode of syncope Encounter for annual health examination Right renal stone Right renal stone Dysuria Pelvic pain Hypothyroid Pain in the abdomen Surgical History History of cholecystectomy History of Family History Other Coronary artery disease Social History Smoking Status: Current every day smoker alcohol intake: current alcohol intake frequency: holidays/special occasions only substance use type: denies use current occupational status: employed Travel in the last 8 weeks: None household members: children housing: house marital status: number of children: 1 ROS Obtained: Yes All systems reviewed & no additional complaints except as documented Physical Exam General General appearance: alert and in no apparent distress Head Head exam: atraumatic and normocephalic Eye Eye exam: Present normal appearance, PERRL and EOMI Neck Neck exam: Present normal inspection, full ROM and trachea midline Respiratory Respiratory exam: Present normal lung sounds bilaterally; Absent respiratory distress, wheezes, stridor, accessory muscle use or prolonged expiratory phase Cardiovascular Cardiovascular exam: Present regular rate, normal rhythm and other (Pulses equal symmetric in upper and lower extremities) Abdominal Exam Abdominal exam: Present soft and tenderness; Absent distention or pulsatile mass Abdominal tenderness: Present epigastrium and mild Extremities Exam Extremities exam: Absent edema Back Exam Back exam: Present CVA tenderness (L); Absent CVA tenderness (R) Neurological Exam Neurological exam: Present alert, oriented X3 and CN II-XII intact; Absent motor sensory deficit Skin Skin exam: Present warm and dry; Absent diaphoresis or erythema Medical Decision Making Medical Records Medical records reviewed: Yes I reviewed the patient's medical records. Vern Inquiry Pt receiving controlled substance: No Vern was queried for this patient: No Vital Signs: 02/15/24 19:19 02/15/24 20:00 Temperature 97.5 F L Temperature Source Oral Pulse Rate 69 Pulse Rate [Right Brachial] 81 Respiratory Rate 18 Blood Pressure 128/87 Blood Pressure [Right Arm] 114/65 Blood Pressure Mean [Right Arm] 81 Blood Pressure Source [Right Arm] Automatic Cuff Blood Pressure Position [Right Arm] Sitting 02 Sat by Pulse Oximetry 94 L 81 L Oxygen Delivery Method Room Air Lab Data Lab Results 02/15/24 19:30: Urine Color Yellow, Urine Appearance Clear, Urine pH 6.5, Ur Specific [place] 1.010, Urine Protein Negative, Urine Glucose (UA) Negative, Urine Ketones Negative, Urine Blood Negative, Urine Nitrate Negative, Urine Bilirubin Negative, Urine Urobilinogen 0.2, Ur Leukocyte Esterase Negative, Urine RBC None, Urine WBC Occasional, Ur Squamous Epith Cells 3-5, Urine Bacteria Trace 02/15/24 19:40: WBC 9.9, RBC 4.02 L, Hgb 13.0, Hct 41.5, MCV 103.3 H, MCH 32.4 H , MCHC 31.4 L, RDW 13.5, Plt Count 327, MPV 8.0, Neut % (Auto) 67.9, Lymph % (Auto) 22.7, Power % (Auto) 5.6, Eos % (Auto) 2.8, Baso % (Auto) 1.1, Neut # (Auto) 6.7, Lymph # (Auto) 2.2, Power # (Auto) 0.6, Eos # (Auto) 0.3, Baso # (Auto) 0.1, ESR 9, APTT 28.8, Sodium 140, Potassium 3.7, Chloride 110 H, Carbon Dioxide 26, Anion Gap 7.7, BUN 9, Creatinine 0.70, Estimated Creat Clear 125, Estimated GFR 96, Est GFR ( Amer) 117, Glucose 83, Hemoglobin A1c 5.1, Calcium 8.7, Magnesium 1.9, Total Bilirubin 0.4, AST 31, ALT 37, Alkaline Phosphatase 83, Troponin I < 0.01, C-Reactive Protein 1.9, Total Protein 7.1, Albumin 4.4, Globulin 2.7, Albumin/Globulin Ratio 1.6, Lipase 70, HCG, Quant < 2 02/15/24 19:40 02/15/24 19:40 Orders (Tests/Meds): ED MEDICATIONS Generic Name Dose Route Start Last Admin Trade Name Freq PRN Reason Stop Dose Admin Sodium Chloride 10 ml 02/15/24 20:28 02/15/24 20:28 Sodium Chloride 0.9% 10ml Syr (Rad Only) IV 03/16/24 20:27 10 ml NEEDED PRN Administration Maintain IV Site Discontinued Medications Generic Name Dose Route Start Last Admin Trade Name Freq PRN Reason Stop Dose Admin Iopamidol 75 ml 02/15/24 20:28 02/15/24 20:28 Iopamidol-370 (76%);100ml Bottle IV 02/15/24 20:29 75 ml ONCE ONE Administration Ketorolac Tromethamine 15 mg 02/15/24 20:21 02/15/24 20:25 Ketorolac 30mg/Ml Vial IV 02/15/24 20:22 15 mg ONCE ONE Administration Morphine Sulfate 4 mg 02/15/24 19:38 02/15/24 19:49 Morphine 4mg/Ml Syringe IV 02/15/24 19:39 4 mg ONCE ONE Administration Ondansetron HCl 4 mg 02/15/24 19:38 02/15/24 19:48 Ondansetron 4mg/2ml Vial IV 02/15/24 19:39 4 mg ONCE ONE Administration ORDERS Category Date Time Status CT abdomen pelvis w con Stat Cat Scan 02/15/24 19:39 Completed CRP [C-Reactive Protein] Stat Lab 02/15/24 19:40 Completed Complete Blood Count Auto Diff Stat Lab 02/15/24 19:40 Completed Comprehensive Metabolic Panel Stat Lab 02/15/24 19:40 Completed Diarrhea 6-11 Panel, Cdiff PCR Stat Lab 02/15/24 19:39 Ordered ESR [Erythrocyte Sedimentation Rate] Stat Lab 02/15/24 19:40 Completed HCG,Quantitative Stat Lab 02/15/24 19:40 Completed Hemoglobin A1C Stat Lab 02/15/24 19:40 Completed Lactic Acid Stat Lab 02/15/24 19:38 Ordered Lipase Stat Lab 02/15/24 19:40 Completed Magnesium Stat Lab 02/15/24 19:40 Completed PTT [Activated Partial Thrombo Time] Stat Lab 02/15/24 19:40 Completed Troponin I Q3H Lab 02/15/24 22:45 Ordered Troponin I Q3H Lab 02/16/24 01:45 Ordered Troponin I Stat Lab 02/15/24 19:40 Completed Urinalysis and Microscopic Stat Lab 02/15/24 19:30 Completed Medical Decision Narrative: 34-year-old female with a history of multitude of neurologic complaints without underlying cause, cholecystectomy, section presenting with abdominal pain. Patient states that abdominal pain started after eating around 1 PM today, 02/14. Shortly after that, had nonbloody, not mucousy diarrhea. Shortly after that around 5 PM, patient began having epigastric abdominal pain that radiates around her left side into her back. States that it is 10 out of 10, sharp, nauseated with vomiting. No fevers or chills, urinary symptoms, or any other concerns. Has not noticed anything that makes it any better or worse. History was obtained via conversation with patient. On arrival, patient hemodynamically stable, alert, oriented x4, appropriate, GCS 15, moving all extremities spontaneously, pupils equal and reactive to light. Full physical exam performed and significant for 34-year-old female who does not appear to be in any acute distress. Stating she has 10 out of 10 abdominal pain. Abdomen is soft, nondistended, appears to be mildly tender in epigastrium. Also has left flank tenderness, not right flank tenderness. No overlying skin changes. No evidence of palpable hernia. Normotensive, nontachycardic, nontachypneic. Well-appearing overall. Differential includes PUD, gastritis, enteritis, gastroenteritis, pancreatitis, SBO, colitis, diverticulitis, nephrolithiasis, UTI, , appendicitis, hepatitis, torsion, less likely aortic pathology, mesenteric ischemia among others. Patient placed on continuous cardiac monitoring and continuous pulse ox with initial blood pressure 114/65, heart rate 81, saturation 94% on room air. Independent interpretation of EKG shows sinus rhythm 76 beats a minute with [place] interval 163, QRS 97, QTc 416. [place] normal. Patient was given morphine and Zofran for symptomatic management and correction of underlying abnormalities. Workup independently interpreted and significant for nonactionable CBC or chemistry, lipase negative, hCG negative. Patient's urinalysis without concern for UTI. On independent interpretation of imaging, no acute intra-abdominal pathology. See radiology read for full review of final results. On reevaluation, patient resting much more comfortably after medicine. She was also given Protonix 40 mg, concern for gastritis. Given patient presentation, workup, history, this most likely represents infectious gastroenteritis. Because patient has had this pain previously and this is a worse iteration, I feel she may have chronic gastritis in the setting of GERD. Esomeprazole sent for home-going. Because patient at baseline without signs or symptoms of clinical decompensation, deemed appropriate for discharge. Results were relayed to patient who voiced understanding and were agreeable to outpatient management and follow up. I discussed my clinical impression with patient and answered all questions. At this time, the evidence for any other entities in the differential is insufficient to warrant any further testing or ED observation. This was explained as well. Advisory was given that persistent or worsening symptoms require further evaluation. I confirmed the understanding of this discussion. Surfboard Designer disclaimer Much of this encounter note is an electronic strain technician spoken language to printed text. Electronic strain technician of the spoken language may permit errors. Although I have reviewed the note, some errors may still exist. Critical Care Critical Care Time Critical Care Time: No
[2024-02-15 19:55] LABS: Alanine Aminotransferase 37 U/L (12-78); Albumin/Globulin Ratio 1.6 (1.1-1.8); Alkaline Phosphatase 83 U/L (38-126); Anion Gap 7.7 mEq/L (5-15); Aspartate Amino Transferase 31 U/L (14-36); Bilirubin,Total 0.4 mg/dl (0.2-1.3); Blood Urea Nitrogen 9 mg/dl (7-17); Calcium 8.7 mg/dl (8.4-10.2); Carbon Dioxide 26 mmol/L (22.0-30.0); Creatinine Clearance Estimated 125 mL/min (50-200); Estimated Glomerular Filt Rate 96 ml/min (>60); GFR (African American) 117 ML/MIN (>60); Globulin 2.7 g/dL (1.3-3.2); Glucose 83 mg/dl (74-100); Lipase 70 U/L (23-300); Total Protein,Serum 7.1 g/dl (6.3-8.2)
[2024-02-15 19:56] LABS: Magnesium 1.9 mg/dl (1.6-2.3)
[2024-02-15 19:59] LABS: Activated Partial Thrombo Time 28.8 seconds (22.8-30.6)
[2024-02-15 20:00] VITALS: BP 128/87; PULSE 69; O2SAT 81
[2024-02-15 20:01] LABS: Bacteria,Urine Trace /lpf; WBC,Urine Occasional #/hpf (0-3)
[2024-02-15 20:08] LABS: Troponin I < 0.01 ng/ml (0.00-0.034)
[2024-02-15 20:15] LABS: HCG,Quantitative < 2 mIU/ml (0-5.42); Hemoglobin A1C 5.1 % (4.0-6.0)
[2024-02-15 20:18] LABS: C-Reactive Protein 1.9 mg/L (0-4)
[2024-02-15] MEDS: KETOROLAC 30MG/ML VIAL 15 MG IV (20:25)
[2024-02-15] MEDS: SODIUM CHLORIDE 0.9% 10ML SYR (RAD ONLY) 10 ML IV (20:28)
[2024-02-15] MEDS: IOPAMIDOL-370 (76%);100ML BOTTLE 75 ML IV (20:28)
[2024-02-15 20:53] LABS: Erythrocyte Sedimentation Rate 9 mm/hr (0-20)
[2024-02-15] MEDS: PANTOPRAZOLE 40MG TABLET 40 MG PO (22:04)
[2024-02-15 22:09] VITALS: BP 112/64; PULSE 72; RESP 18; TEMP 36.6; O2SAT 99
== END 2024-02-15 22:11 | disposition home or self-care (01) ==
PROVIDERS: Emergency Provider Emergency Medicine; PCP Nurse Practitioner
DX: R10.13 Epigastric pain (principal); R19.7 Diarrhea, unspecified
CPT/HCPCS: 74177; 80053; 81001; 83036; 83690; 83735; 84484; 84702; 85025; 85651; 85730; 86140; 93005; 96374; 96375; 99285; J1885; J2270; J2405; Q9967

== ENCOUNTER 2024-08-25 16:05 | Outpatient (CLI) | payer OTHER, SELFPAY ==
[2024-08-25 18:39] LABS: Coronavirus 19, PCR Not Detected (NotDetected); Human Rhinovirus Not Detected (NotDetected); Influenza A, PCR Not Detected (NotDetected); Influenza B, PCR Not Detected (NotDetected); Respiratory Syncytial Virus Not Detected (NotDetected)
== END 2024-08-25 23:59 | disposition home or self-care (01) ==
LOC: LAB.DROPOF 08-26 10:27
PROVIDERS: PCP Nurse Practitioner; Visit Provider Nurse Practitioner
DX: J02.9 Acute pharyngitis, unspecified (principal); R51.9 Headache, unspecified; R53.83 Other fatigue
CPT/HCPCS: 87631

== ENCOUNTER 2024-10-02 16:15 | Outpatient (CLI) | payer BC, SELFPAY ==
[2024-10-02 16:49] LABS: Basophils # 0.1 K/mm3 (0-0.2); Basophils % 0.7 % (0.1-2.0); Eosinophils # 0.1 Kmm3 (0.0-0.4); Eosinophils % 1.2 % (0.1-12.0); Hematocrit 38.2 % (37.0-47.0); Hemoglobin 12.8 g/dL (12.2-16.2); Lymphocytes # 2.3 K/mm3 (0.7-4.5); Lymphocytes % 26.3 % (10-50); Mean Corpuscular HGB Conc 33.5 g/dL (31.8-35.4); Mean Corpuscular Hemoglobin 32.2 pg (27.0-31.2); Mean Corpuscular Volume 96.2 fl (81-99); Mean Platelet Volume 10.2 fl (7.4-10.4); Monocytes # 0.6 K/mm3 (0.1-1.0); Monocytes % 7.2 % (1.7-9.3); Neutrophils # 5.5 K/mm3 (1.8-7.8); Neutrophils % 64.1 % (37.0-80.0); Nucleated Red Blood Cells # 0 10^3/uL; Nucleated Red Blood Cells % 0 %; Platelet Count 317 K/mm3 (142-424); Red Blood Count 3.97 M/mm3 (4.20-5.40); Red Cell Distribution Width 12.3 % (11.5-17.5); Red Cell Distribution Width-SD 43.6 fL; White Blood Count 8.6 K/mm3 (4.8-10.8)
[2024-10-02 17:29] LABS: Albumin Level 4.2 g/dl (3.5-5.0); Chloride 107 mmol/L (98-107); Sodium 138 mmol/L (136-145)
[2024-10-02 17:32] LABS: Alanine Aminotransferase 27 U/L (12-78); Albumin/Globulin Ratio 1.8 (1.1-1.8); Alkaline Phosphatase 80 U/L (38-126); Aspartate Amino Transferase 25 U/L (14-36); Bilirubin,Total 0.2 mg/dl (0.2-1.3); Blood Urea Nitrogen 9 mg/dl (7-17); Carbon Dioxide 25 mmol/L (22.0-30.0); Estimated Glomerular Filt Rate 115 ml/min (>60); GFR (African American) 139 ML/MIN (>60); Globulin 2.3 g/dL (1.3-3.2); Total Protein,Serum 6.5 g/dl (6.3-8.2)
[2024-10-02 17:33] LABS: Glucose 92 mg/dl (74-100)
== END 2024-10-02 23:59 | disposition home or self-care (01) ==
PROVIDERS: PCP Nurse Practitioner; Visit Provider Specialist
DX: G50.0 Trigeminal neuralgia (principal)
CPT/HCPCS: 36415; 80053; 85025

== ENCOUNTER 2025-04-28 13:53 | Emergency (ER) | payer BC, SELFPAY ==
[2025-04-28 13:57] VITALS: BP 107/80; PULSE 96; RESP 18; TEMP 36.5; O2SAT 99; BMI 25.4
[2025-04-28 14:06] VITALS: BP 111/70; PULSE 94; O2SAT 97
[2025-04-28 14:15] VITALS: BP 103/62; PULSE 92; O2SAT 97
[2025-04-28 14:19] LABS: Microscopic, Urine URINE MICROSCOPIC (MICROSCOPIC)
--- NOTE | 2025-04-28 14:19 | ED_ITS ---
<Statement entered by Raffi Estrada MD - 04/29/25 11:56> I was consulted by the LAWSON, and we discussed the complexity of the problems being addressed. I approve the treatment and management plan for this patient's care in the emergency department, thus performing a substantive portion of the medical decision making. Raffi Estrada MD Discharge Plan Disposition Chief Complaint: Vaginal Bleeding Prescriptions Prescriptions: No Action carbamazepine 100 mg tablet,chewable See Rx Instructions .ROUTE .COMPLEX Qty: 270 3RF Dose Instruction: CHEW AND SWALLOW 1 TAB (100 MG) EVERY MORNING AND 2 TABS (200 MG) AT BEDTIME- MAX DOSE 3 TABS DAILY Rx Instructions: CHEW AND SWALLOW 1 TAB (100 MG) EVERY MORNING AND 2 TABS (200 MG) AT BEDTIME- MAX DOSE 3 TABS DAILY Referrals Follow up/Referrals: Bailee Spencer APRN [Primary Care Provider, Family Practice] - See instructions Print Language Print Language: Japanese Discharge ED Provider: Raffi Estrada General Adult HPI General Chief complaint: Vaginal Bleeding Stated complaint: lower back pain, heavy bleeding Time Seen by Provider: 04/28/25 14:06 Mode of Arrival: Ambulatory Source of Information: Patient Description of Symptoms (Recalled from ER Triage Doc. by RN): patient presents for heavy than normal menstrual cycle that is causing dizziness and chills . rogers stated her normal periods are light and i could go up to 8 hours before changing a tampon . her currenct cycle she states she is going through super tampons every 15 minutes and super plus tampons every 30 minutes . she states the blood is dark, not bright red. she is having pelvic pain and lower abdominal pain. History of Present Illness HPI narrative: 35-year-old female presents for heavy menstrual bleeding with clots. She is having chills, nausea, dizziness and slight confusion. She says that typically her.'s are pretty light and only take 1 tampon every 6-8 hours. She is now going through 1 super plus tampon every 30 minutes. She says this started with pain Friday and Friday then her bleeding started on Friday with low back pain. She says she is clotting a lot today more than yesterday. Related Data Previous Rx's ?Medication ?Instructions ?Recorded carbamazepine 100 mg chewable See Rx Instructions .Rou te 04/06/25 tablet .COMPLEX #270 tabs Allergies Allergy/AdvReac Type Severity Reaction Status Date / Time clindamycin AdvReac Verified 04/06/25 08:24 [facility] Disclaimer: The information contained in this section may have been updated after the patient was seen, as this information can be updated by other users. Medical History Peeling skin Complaint of paresthesia Unexplained night sweats SOSA (obstructive sleep apnea) Palpitations Arm paresthesia, right Arm paresthesia, left Pre-syncope Leukocytosis Trigeminal neuralgia of right side of face Stable Cardiac LV ejection fraction of 40-49% Episode of syncope Encounter for annual health examination Right renal stone Right renal stone Dysuria Pelvic pain Hypothyroid Pain in the abdomen Surgical History S/P appendectomy History of appendectomy History of cholecystectomy History of Family History Other Coronary artery disease Social History Smoking Status: Light tobacco smoker alcohol intake: current alcohol intake frequency: holidays/special occasions only substance use type: denies use current occupational status: employed Travel in the last 8 weeks?: None household members: children housing: house marital status: number of children: 1 Have you lived/traveled outside [place] in past 30 days?: No Contact w/someone who lives/traveled outside [place] past 30 days?: No Exposure to someone with infectious disease in past 14 days?: No Do you have a fever (greater than 100.4 F or 38 C)?: No Have you tested positive for COVID-19?: No Exposed to someone with COVID-19 in past 14 days?: No Do you have a sore throat?: No Do you have a cough?: No Do you have any weakness?: No Do you have any diarrhea?: No Are you experiencing any unusual bleeding?: No Do you have any muscle aches/pain?: No Do you have any abdominal pain?: No Are you experiencing loss of taste or smell?: No Other Medical History Have you received the Flu Vaccine for this season: No Have you received the Pneumonia Vaccine: No ROS Obtained: Yes Systems reviewed as appropriate & no additional complaints except as documented Constitutional Constitutional: Reports as per HPI Physical Exam General General appearance: alert and in no apparent distress Head Head exam: normocephalic Eye Eye exam: Present PERRL and EOMI ENT ENT exam: Present normal oropharynx and mucous membranes moist Neck Neck exam: Present full ROM and trachea midline Respiratory Respiratory exam: Present normal lung sounds bilaterally Cardiovascular Cardiovascular exam: Present regular rate, normal rhythm, normal heart sounds, +S1 and +S2 Abdominal Exam Abdominal exam: Present soft and normal bowel sounds Extremities Exam Extremities exam: Present normal inspection, full ROM and normal capillary refill Neurological Exam Neurological exam: Present alert and oriented X3 Skin Skin exam: Present warm and dry Medical Decision Making Medical Records Screening: Per USPSTF and CDC recommendations, given the prevalence of disease in our region, it is our hospital?s policy to screen for HIV and viral Hepatitis for all patients aged 18 and over and those with ongoing risk factors. Vern Inquiry Pt receiving controlled substance: No Vern was queried for this patient: No Vital Signs: 04/28/25 13:57 04/28/25 14:06 04/28/25 14:15 Temperature 97.7 F Temperature Source Oral Pulse Rate 94 H 92 H Pulse Rate [Right Radial] 96 H Respiratory Rate 18 Blood Pressure 111/70 103/62 L Blood Pressure [Right Arm] 107/80 L Blood Pressure Mean [Right Arm] 89 Blood Pressure Source [Right Arm] Automatic Cuff Blood Pressure Position [Right Arm] Sitting 02 Sat by Pulse Oximetry 99 97 97 Oxygen Delivery Method Room Air Room Air Room Air 04/28/25 15:15 04/28/25 15:30 Temperature Temperature Source Pulse Rate 95 H 84 Pulse Rate [Right Radial] Respiratory Rate Blood Pressure 103/74 L 106/62 L Blood Pressure [Right Arm] Blood Pressure Mean [Right Arm] Blood Pressure Source [Right Arm] Blood Pressure Position [Right Arm] 02 Sat by Pulse Oximetry 97 98 Oxygen Delivery Method Lab Data Lab Results 04/28/25 14:02: Urine Color Yellow, Urine Appearance Clear, Urine pH 6.0, Ur Specific [place] 1.010, Urine Protein Negative, Urine Glucose (UA) Negative, Urine Ketones Negative, Urine Blood 1+ A, Urine Nitrate Negative, Urine Bilirubin Negative, Urine Urobilinogen 0.2, Ur Leukocyte Esterase Negative, Urine RBC Occasional, Urine WBC None, Ur Squamous Epith Cells 5-10, Urine Bacteria Trace, Urine HCG, Qual Negative 04/28/25 14:30: WBC 6.9, RBC 3.97 L, Hgb 12.7, Hct 38.9, MCV 98.0, MCH 32.0 H, MCHC 32.6, RDW 12.6, Plt Count 304, MPV 10.2, Neut % (Auto) 59.7, Lymph % (Auto) 29.5, [place] % (Auto) 7.4, Eos % (Auto) 2.3, Baso % (Auto) 0.7, Neut # (Auto) 4.1, Lymph # (Auto) 2.0, [place] # (Auto) 0.5, Eos # (Auto) 0.2, Baso # (Auto) 0.1, PT 10.6, INR 0.95, APTT 27.4, Sodium 138, Potassium 3.8, Chloride 106, Carbon Dioxide 25, Anion Gap 10.8, BUN 9, Creatinine 0.70, Estimated Creat Clear 109, Estimated GFR 96, Est GFR ( Amer) 116, Glucose 111 H, Calcium 9.1, Magnesium 2.1, Total Bilirubin 0.2, AST 23, ALT 17, Alkaline Phosphatase 94, Troponin I < 0.01, Total Protein 7.0, Albumin 4.6, Globulin 2.4, A lbumin/Globulin Ratio 1.9 H, Lipase 63, Blood Type O Positive, Antibody Screen Negative 04/28/25 14:30 04/28/25 14:30 Orders (Tests/Meds): ED MEDICATIONS Discontinued Medications Generic Name Dose Route Start Last Admin Trade Name Freq PRN Reason Stop Dose Admin Acetaminophen 1,000 mg 04/28/25 14:14 04/28/25 15:08 Acetaminophen 1,000mg/100ml Vial IV 04/28/25 14:15 1,000 mg ONCE ONE Administration Sodium Chloride 1,000 mls @ 999 mls/hr 04/28/25 14:14 04/28/25 15:07 Sod Chlor 0.9% 1000ml Bag IV 04/28/25 15:14 999 mls/hr .Q1H1M ONE Administration Ketorolac Tromethamine 30 mg 04/28/25 14:14 04/28/25 15:07 Ketorolac 30mg/Ml Vial IV 04/28/25 14:15 30 mg ONCE ONE Administration ORDERS Category Date Time Status Type and Screen Stat BBK 04/28/25 14:30 Completed US transvaginal Stat Exams 04/28/25 14:22 Completed CBC [Complete Blood Count Auto Diff] Stat Lab 04/28/25 14:30 Completed Comprehensive Metabolic Panel Stat Lab 04/28/25 14:30 Completed Lipase Stat Lab 04/28/25 14:30 Completed Magnesium Stat Lab 04/28/25 14:30 Completed PT INR [Prothrombin Time INR] Stat Lab 04/28/25 14:30 Completed PTT [Activated Partial Thrombo Time] Stat Lab 04/28/25 14:30 Completed Trop I [Troponin I] Stat Lab 04/28/25 14:30 Completed Troponin I Q3H Lab 04/28/25 17:15 Ordered Troponin I Q3H Lab 04/28/25 20:15 Ordered Urinalysis and Microscopic Stat Lab 04/28/25 14:02 Completed Urine , HCG Qual. Stat Lab 04/28/25 14:02 Completed Medical Decision Narrative: patient is a 35-year-old female presenting to the emergency department for evaluation of heavy menstrual bleeding. Patient is hemodynamically stable and nontoxic-appearing upon arrival, afebrile. Differential diagnosis includes anemia, dysfunctional uterine bleeding, among others. Workup will be conducted with hematologic labs, specific imaging, provocative tests. Initial inventions include crystalloid bolus, analgesics, antibiotics. Initial workup reviewed by ia hematologic labs are remarkable for white count was 6.9, H&H were stable at 12.7 and 38.9, BUN and creatinine were normal troponin was less than 0.01 urine had 1+ blood and it. Patient had a normal ultrasound. Patient's vitals are stable at this time. Discussed with Dr. Estrada about the initial workup. Discussed with Dr. Basilio concerning the results and plan for home. We will give a trial of NSAIDs and send her home and have her follow-up closely with her ACCORDION REPAIRER. Critical Care Critical Care Time Critical Care Time: No
--- NOTE | 2025-04-28 14:22 | US_ITS ---
PROCEDURE INFORMATION: Exam: US Duplex Artery and Vein of the Abdominal and/or Reproductive Organs. Complete Ovaries Exam date and time: 04/28/2025 2:31 PM Age: 35 years old Clinical indication: Other: Bleeding; Additional info: Heavy bleeding TECHNIQUE: Imaging protocol: Real-time duplex ultrasound scan of the arterial and venous flow with color Doppler flow and spectral waveform analysis with image documentation. Duplex exam was performed to evaluate for torsion and other vascular conditions. COMPARISON: CT ABDOMEN PELVIS W CON 02/16/2024 7:26 AM FINDINGS: Right ovary/adnexa: Right ovary is normal in size for age. Color and spectral Doppler demonstrates normal ovarian arterial and venous blood flow. Left ovary/adnexa: Left ovary is normal in size for age. Color and spectral Doppler demonstrates normal ovarian arterial and venous blood flow. IMPRESSION: Normal ovarian Doppler exam. No evidence of torsion. PROCEDURE INFORMATION: Exam: US Pelvis, Transvaginal, Non-Obstetric Exam date and time: 04/28/2025 2:31 PM Age: 35 years old Clinical indication: Other: Bleeding; Additional info: Heavy bleeding TECHNIQUE: Imaging protocol: Real-time transvaginal pelvic (non-obstetric) ultrasound with image documentation. Transvaginal imaging was used for better evaluation of the endometrium, adnexa, and/or cervix. COMPARISON: US TRANSVAGINAL 02/28/2022 2:43 PM FINDINGS: Uterus: Uterine size and endometrial stripe are within normal limits for age. Uterine stripe measures 6 mm in thickness. No submucosal fibroids or endometrial polyps identified. Uterine morphology is within normal limits. No convincing evidence of adenomyosis. Nabothian cyst is incidentally noted in the cervix. Right ovary/adnexa: Right ovary is normal in size for age and contains a few small physiologic follicles. Left ovary/adnexa: Left ovary is normal in size for age and contains a few small physiologic follicles. Urinary bladder: Unremarkable as visualized. Intraperitoneal space: No evidence of free fluid. IMPRESSION: Normal pelvic ultrasound.
[2025-04-28 14:24] LABS: Bilirubin,Urine Negative (Negative); Color,Urine YELLOW (Yellow); Glucose,Urine (UA) Negative (Negative); Ketones,Urine Negative (Negative); Leukocyte Esterase,Urine Negative (Negative); PH,Urine 6.0 (5.0-8.5); Protein,Urine Negative (Negative); Specific Gravity, Urine 1.010 (1.005-1.030); Urobilinogen,Urine 0.2 EU/dl (0.2)
[2025-04-28 14:36] LABS: Urine Pregnancy, HCG Qual. Negative (Negative)
[2025-04-28 14:38] LABS: RBC,Urine Occasional #/hpf (0-3)
[2025-04-28 14:39] LABS: Bacteria,Urine Trace /lpf
[2025-04-28 14:43] LABS: Hematocrit 38.9 % (37.0-47.0); Hemoglobin 12.7 g/dL (12.2-16.2); Immature Granulocytes % 0.4 %; Mean Corpuscular HGB Conc 32.6 g/dL (31.8-35.4); Mean Corpuscular Hemoglobin 32.0 pg (27.0-31.2); Mean Corpuscular Volume 98.0 fl (81-99); Nucleated Red Blood Cells % 0 %; Platelet Count 304 K/mm3 (142-424); Red Blood Count 3.97 M/mm3 (4.20-5.40); Red Cell Distribution Width-SD 45.5 fL; White Blood Count 6.9 K/mm3 (4.8-10.8)
[2025-04-28 15:03] LABS: Activated Partial Thrombo Time 27.4 seconds (22.8-30.6); INR 0.95 (0.9-1.1); Prothrombin Time 10.6 seconds (10.1-12.5)
[2025-04-28 15:07] LABS: Alanine Aminotransferase 17 U/L (12-78); Albumin Level 4.6 g/dl (3.5-5.0); Albumin/Globulin Ratio 1.9 (1.1-1.8); Alkaline Phosphatase 94 U/L (38-126); Anion Gap 10.8 mEq/L (5-15); Aspartate Amino Transferase 23 U/L (14-36); Bilirubin,Total 0.2 mg/dl (0.2-1.3); Blood Urea Nitrogen 9 mg/dl (7-17); Calcium 9.1 mg/dl (8.4-10.2); Carbon Dioxide 25 mmol/L (22.0-30.0); Chloride 106 mmol/L (98-107); Creatinine Clearance Estimated 109 mL/min (50-200); Creatinine,Serum 0.70 mg/dl (0.52-1.04); Estimated Glomerular Filt Rate 96 ml/min (>60); GFR (African American) 116 ML/MIN (>60); Globulin 2.4 g/dL (1.3-3.2); Glucose 111 mg/dl (74-100); Lipase 63 U/L (23-300); Magnesium 2.1 mg/dl (1.6-2.3); Potassium 3.8 mmoL/L (3.5-5.1); Sodium 138 mmol/L (136-145); Total Protein,Serum 7.0 g/dl (6.3-8.2)
[2025-04-28] MEDS: KETOROLAC 30MG/ML VIAL 30 MG IV (15:07)
[2025-04-28] MEDS: 0.9 % SODIUM CHLORIDE 1000ML 1,000 ML 999 ML IV (15:07)
[2025-04-28] MEDS: ACETAMINOPHEN 1,000MG/100ML VIAL 1000 MG IV (15:08)
[2025-04-28 15:15] VITALS: BP 103/74; PULSE 95; O2SAT 97
[2025-04-28 15:20] LABS: Troponin I < 0.01 ng/ml (0.00-0.034)
[2025-04-28 15:30] VITALS: BP 106/62; PULSE 84; O2SAT 98
[2025-04-28 16:10] VITALS: BP 106/63; PULSE 86; RESP 16; TEMP 36.9; O2SAT 99
--- OUTSIDE RECORDS SUMMARY | 2025-04-28 16:40 | XMS_ITS | Clinical Summary ---
Author Organization Healthcare Address [address] [place] [address] Care Team Providers Care Power And Recovery Supervisor Name Role Phone Bailee Spencer Jesse NOEL Primary Care Provider [phone] Allergies Active Allergy Reactions Criticality Noted Date Comments Clindamycin Diarrhea,Hives Medium 01/14/2018 Stomach pains Medications bisoprolol (Zebeta) 5 MG tablet 0.5 tablets (2.5 mg). 12/24/2023 Active carBAMazepine (TEGretol) 100 MG chewable tablet 2 tablets (200 mg). 12/01/2023 Active Encounters Date Type Department Care Team Description 03/14/2025 Telephone [facility] [address], [address] [place] [address] Issac Hernandez MD from Last 3 Months Immunizations Immunization Administration Dates Next Due Influenza, injectable, quadrivalent, preservativ e free 03/15/2014 PPD Skin Test (TB Skin Test) 09/11/2015,08/21/19 12 Tdap 03/01/2014 Social History Tobacco Use Types Packs/Day Years Used Date Smoking Tobacco: Never Smokeless Tobacco: Never Tobacco Cessation:Counseling Given: Not Answered Alcohol Use Standard Drinks/Week Comments Defer 0 (1 standard drink = 0.6 oz pur e alcohol) PHQ-2 Answer Date Recorded Patient Health Questionnaire-2 Score 0 03/15/2024 Comments Unknown Sex and Gender Information Value Date Recorded Sex Assigned at Not on file Legal Sex Female 8:37 AM EDT Gender Identity Not on file Sexual Orientation Not on file Last Filed Vital Signs Vital Sign Reading Time Taken Comments Blood Pressure 96/61 03/15/2024 1:48 PM EDT Pulse 71 03/15/2024 1:48 PM EDT Temperature 36.8 C (98.2 F) 03/15/2024 1:48 PM EDT Respiratory Rate 16 03/15/2024 1:48 PM EDT Oxygen Saturation 96% 03/15/2024 1:48 PM EDT Inhaled Oxygen Concentration - - Weight 69.5 kg (153 lb 3.5 oz) 03/15/2024 1:48 P M EDT Height 154.9 cm (5' 1 ) 03/15/2024 1:48 PM EDT Body Mass Index 28.95 03/15/2024 1:48 PM EDT Plan of Treatment Health Maintenance Due Date Last Done Comments [facility]-HIV Screening 1991 [facility]-Hepatitis C Screening 1991 [facility]-/Child/Adol SDOH Screenings 1991 [facility]-Varicella Vaccines (1 of 2 - 13+ 2-dose series) 01/25/2004 [facility]- SDOH Screenings 2009 [facility]-Adult SDOH Screenings 2009 [facility]-Hepatitis B Vaccines (1 of 3 - 19+ 3-dose series) 2010 HPV Vaccines (1 - 3-dose SCD M series) 2018 [facility]-HPV/Cotest 2021 [facility]-DTaP,Tdap,and Td Vaccine s (2 - Td or Tdap) 03/01/2024 03/01/2014 [id number] Vaccine (2 - season) 2025 10/21/2020 [facility]-Influenza Vaccine (#1) 2025 03/15/2014 [facility]-Depression Screening 03/15/2025 03/15/2024 [facility]-Cervical Cancer Screening 01/21/2027 [facility]-Pap Smear 01/21/2027 01/22/2024 [facility]-Zoster Vaccines (1 of 2) 2041 [facility]-Obesity Intervention Completed 024, 02/24/2024 [facility]-HIB Vaccines Aged Out No longer e ligible based on patient's age to complete this topic [facility]-Hepatitis A Vaccines Aged Out No longer eligible based on patient's age to complete this topic [facility]-IPV Vaccines Aged Out No longer e ligible based on patient's age to complete this topic [facility]-Pneumococcal Vaccine: Pediatrics (0 to 5 Years) and At-Risk Patients (6 to 49 Years) Aged Out No longer eligible b ased on patient's age to complete this topic [facility]-Rotavirus Vaccines Aged Out No lo nger eligible based on patient's age to complete this topic Insurance ANTH Care Teams Power And Recovery Supervisor Relationship Specialty Start Date End Date Bailee Spencer APRN [address] [place] [address] PCP - General 12/26/23
--- OUTSIDE RECORDS SUMMARY | 2025-04-28 16:40 | XMS_ITS | Clinical Summary ---
Author Organization [facility] Address [address] [place] [id number] Phone Care Team Providers Care Child Care Worker Name Role Phone Bandar Diego MD Primary Care Provider [phone] Allergies Active Allergy Reactions Criticality Noted Date Comments Clindamycin Diarrhea,Other (See Comments) 01/14 Stomach pains Medications desogestreL-eth inyl estradioL (APRI) 0.15-0.03 mg Oral TabletIndicatio ns:Encounter for menstrual regulation Take 1 Tab by mouth daily. 28 Tab 3 1 Active Additional Information Patient not taking.Reason: Pt electing to not take the medication, Reported on 01/30/2023 bisoprolol (ZEBETA) 5 mg Oral Tablet 2.5 mg daily. 4 Active selenium sulfide (SELSUN) 2.5 % Top LotionIndicatio ns:Tinea versicolor Apply topically daily. for one week, repeat in one month if needed 118 mL 3 5 Active fluconazole (DIFLUCAN) 200 mg Oral TabletIndicatio ns:Tinea versicolor Take 1 Tablet by mouth once a week. 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 Vitreous floaters of both eyes 06/12/2015 Blurred vision 06/12/2015 Fatigue 11/23/2014 Menorrhagia 11/23/2014 Depression 10/19/2014 Tobacco abuse 10/05/2014 Resolved Problems Problem Noted Date Diagnosed Date Resolved Date RUQ pain 02/21/2015 04/10/2017 Post-dates 06/07/2014 015 Overview (06/07/2014): IOL 41.2 Meconium in amniotic fluid 06/07/2014 0 07/13/2014 Liveborn by 06/07/20142014 Uterine contractions 05/27/2014 014 Overview (05/27/2014): 39.6 Encounter for suspected marleny ature rupture of amniotic membranes, with rupture of membranes not found 04/05/2014 04/13/2014 Anemia complicating 03/15/2014 07/13/2014 Overview (03/15/2014): QD FeSO4 Rib pain on right side 03/15/201407/13 Overview (03/15/2014): Current Supervision of normal 02/04/2014 07/13/2014 Overview (05/09/2014): CNM care It's a boy! MADELIN PNLs NL GCT 84 GBS Neg care 01/17/2014 03/15/2014 Abdominal pain 05/28/2012 03/15/2014 Gastric dilatation 05/28/2012 4 Biliary dyskinesia 7 Immunizations Immunization Administration Dates Next Due Influenza Vaccine Quadrivalent PF 2013,03/09/2014(Deferred: Patient Refused) PPD Test 09/11/2015,08/21/2011 Tdap 03/01/2014 Surgical History Surgery Date Site/Laterality Comments SECTION CHOLECYSTECTOMY INDUCED SECTION 06/07/2014 Bilateral primary section Low transverse uterine incision @ 2144 ; Surgeon: Lilli Hilliard MD; Location: [facility]; Service: Gynecology CHOLECYSTECTOMY, LAPAROSCOPIC 02/21/2015 Abdomen/N/A LAPAROSCOPIC CHOLECYSTECTOMY; Surgeon: Paulette Lowry MD; Location: [facility]; Service: General TUBAL LIGATION Medical History Medical History Date Comments Left wrist fracture Fracture, patella Arthritis left wrist Tobacco abuse Depression 10/19/2014 Family History Medical History Relation Name Comments Cancer Maternal Grandfather SKIN Dementia Maternal Grandfather Cataracts Maternal Grandmother Stroke Maternal Grandmother Blindness Neg Hx Diabetes Neg Hx Glaucoma Neg Hx Hypertension Neg Hx Macular Degen Neg Hx Retinal Detachment Neg Hx Thyroid Disease Neg Hx Relation Name Status Comments Father Alive Maternal Grandfather Maternal Grandmother Alive Mother Alive Paternal Grandfather Paternal Grandmother Social History Tobacco Use Types Packs/Day Years Used Date Smoking Tobacco: Former Cigarettes 0.5 11.7 0 07/15/2008 - 03/09/2020 Smokeless Tobacco: Never Tobacco Cessation:Counseling Given: Not Answered Alcohol Use Standard Drinks/Week Comments Yes 0 (1 standard drink = 0.6 oz pur e alcohol) once a month if that AUDIT-C Answer Date Recorded Q1: How often do you have a drink containing alc ohol? 2-4 times a month 10/25/2020 Average Number of Drinks Not on file 021 Frequency of Binge Drinking Not on file 10/07 Overall Financial Resource Strain (CARDIA) Answe r Date Recorded Difficulty of Paying Living Expenses Not hard at all 09/28/2020 PHQ-2 Answer Date Recorded PHQ-2 Score 0 06/28/2019 Hunger Vital Sign Answer Date Recorded Worried About Running Out of Food in the Last Ye ar Never true 09/28/2020 Ran Out of Food in the Last Year Never true 09/28/2020 PRAPARE - Transportation Answer Date Re corded Lack of Transportation (Medical) No 09/28/2020 Lack of Transportation (Non-Medical) No 09/28/2020 Sexually Active Control Partners Comments Yes Surgical Male tubal ligation Comments No Sex and Gender Information Value Date Recorded Sex Assigned at Not on file Legal Sex Female 11:05 PM EDT Gender Identity Not on file Sexual Orientation Not on file Obstetrics History Para Term AB IAB SAB Ectopic Multiple Livin g Live Births 2 1 1 0 1 0 0 0 1 1 Date Outcome GA Total Labor Labor/2nd/3rd Weight Sex Type Anes PTL Monie A1 A5 Name Clin AB 014 Term 41w 3d 0h 01m 0h 01m 7 lb 5.6 oz (3.335 kg) M CSP Epidu ral,S rhiannon N Livin g 8 9 Lilli Hilliard MD Delivery Location:[facility] Comments:Skin tag left ear Last Filed Vital Signs Vital Sign Reading Time Taken Comments Blood Pressure 130/82 01/22/2024 3:04 PM EDT Pulse 82 09/03/2023 6:00 PM EDT Temperature 36.9 C (98.5 F) 09/03/2023 3:39 PM EDT Respiratory Rate 15 09/03/2023 6:00 PM EDT Oxygen Saturation 100% 09/03/2023 6:00 PM EDT Inhaled Oxygen Concentration - - Weight 70.3 kg (155 lb) 01/22/2024 3:04 PM EDT Height 154.9 cm (5' 1 ) 01/22/2024 3:04 PM EDT Body Mass Index 29.29 01/22/2024 3:04 PM EDT Plan of Treatment Health Maintenance Due Date Last Done Comments Hepatitis B Vaccine (1 of 3 - 19+ 3-dose series) 2010 Annual Wellness Exam 04/24/2022 04/24/2021, 07/15/2018, 03/09/2014 (Postponed) DTaP/TDaP/Td (2 - Td or Tdap) 03/01/2024 03/01/2014 COVID-19 Vaccine ( - season) 2025 Influenza Vaccine (#1) 2025 8, 04/10/2017 (Declined), 03/15/2014 Pap Smear 01/21/2027 01/22/2024, 11/08, 05/15/2015, Additional history exists Cervical Cancer Screening 01/21/2029 HPV/Pap Cotest 01/21/2029 01/22/2024 Meningococcal B Vaccine Aged Out No l onger eligible based on patient's age to complete this topic Pneumococcal Vaccine 0-49 Aged Out No longer eligible based on patient's age to complete this topic Goals Goal Patient Goal Type Associated Problems Recent Progress Patient-Stated? Author Maintain a healthy diet, exercise regularly and maintain an ideal body weight General No Koors, Loretta E, RMA Stay Tobacco Free Lifestyle No Koors, Loretta E, RMA Procedures Procedure Name Priority Date/Time Associated Diagnosis Comments PATIENT COORDINATOR CYTOLOGY REQUEST (PAP ONLY) Routine 01/22/2024 4:29 PM EDT Encounter for Papanicolaou smear of cervix from Last 3 Months or Most Recently Relevant to Health Maintenance Results * PATIENT COORDINATOR CYTOLOGY REQUEST (PAP ONLY) (01/22/2024 4:29 PM EDT) CASE REPORT Gynecologic Cytology Report Case: [id number] Authorizing Provider: Marty Pope MD Collected: 01/22/20249 Ordering Location: [facility] Received: 01/22/2024 1629 First Screen: Ngozi Boyle CT Specimen: LIQUID-BASED PAP - CERVICAL, Cervix 01/28/2024 9:40 AM EDT [facility] PAP FINAL DIAGNOSIS Negative for intraepithelial lesion or malignancy 01/28/2024 9:40 AM EDT [facility] at 0940 EDT MICROSCOPIC DESCRIPTION Microscopic examination is performed and the findings corroborate the diagnosis. 01/28/2024 9:40 AM EDT [facility] PAP SMEAR ADEQUACY Satisfactory for evaluation 01/28/2024 9:40 AM EDT [facility] ENDOCERVICAL T-ZONE Transformation zone present 01/28/2024 9:40 AM EDT [facility] EMBEDDED IMAGES 9:40 AM EDT [facility] PAP DISCLAIMER The Pap Smear is a screening test that aids in the detection of cervical cancer and cancer precursors. Both false positive and false negative results can occur. The test should be used at regular intervals, and positive results should be confirmed before definitive therapy. Processed using the ThinPrep Director Of Bands Automated cytology screening device (CareXtend). 01/28/2024 9:40 AM EDT [facility] Thin Prep SPECIMEN FROM UTERINE CERVIX / Unknown 01/22/2024 4:29 PM EDT 01/22/2024 4:29 PM EDT us Marty Pope MD CYTOLOGY ORDERABLES Final Resul [place] [address] from Last 3 Months or Most Recently Relevant to Health Maintenance Insurance ANTHEM PPO ANTHEM PPO Advance Directives For more information, please contact: [phone] * Full Code (Latest Code Status on File) Date Activated Date Inactivated Comments 02/22/2015 8:44 AM 02/23/2015 1:48 AM * Full Code Date Activated Date Inactivated Comments 06/06/2014 8:47 PM 06/09/2014 7:38 PM Care Teams Child Care Worker Relationship Specialty Start Date End Date Bandar Diego MD [address] [place] [address] [place] [address] PCP - General Family Medicine 04/24/21
--- OUTSIDE RECORDS SUMMARY | 2025-04-28 16:40 | XMS_ITS | Encounter Summary ---
Author Organization Healthcare Address [address] [place] [address] Care Team Providers Care Care Advocate Name Role Phone Tj Bailee Jesse NOEL Primary Care Provider [phone] Encounter Details Date Type Department Care Team (Late st Contact Info) Description 03/14/2025 Telephone [facility] [address] [place] [address] Issac Hernandez MD [address] [place] [address] Social History Tobacco Use Types Packs/Day Years Used Date Smoking Tobacco: Never Smokeless Tobacco: Never Alcohol Use Standard Drinks/Week Comments Defer 0 (1 standard drink = 0.6 oz pur e alcohol) PHQ-2 Answer Date Recorded Patient Health Questionnaire-2 Score 0 03/15/2024 Comments Unknown Sex and Gender Information Value Date Recorded Sex Assigned at Not on file Legal Sex Female 8:37 AM EDT Gender Identity Not on file Sexual Orientation Not on file documented as of this encounter Miscellaneous Notes * Telephone Encounter - Lilly Braun - 03/14/2025 10:13 AM EDT LVM for PT to call to r/s appt. Dr. Hernandez is no longer with us and will not be in 03/15 to see patient. documented in this encounter Plan of Treatment Not on file documented as of this encounter Visit Diagnoses Not on filedocumented in this encounter Additional Health Concerns Assessment Noted Time A fall risk assessment has been complete d for the patient 03/15/2024 1:50 PM EDT A Body Mass Index follow-up plan has been documented for the patient 03/15/2024 2:24 PM EDT documented as of this encounter Care Teams Care Advocate Relationship Specialty Start Date End Date Bailee Spencer APRN [address] [place] [address] PCP - General 12/26/23 documented as of this encounter
== END 2025-04-28 16:15 | disposition home or self-care (01) ==
PROVIDERS: Nurse Practitioner; Emergency Provider Student in an Organized Health Care Education/Training Program; PCP Nurse Practitioner
DX: N93.9 Abnormal uterine and vaginal bleeding, unspecified (principal); M54.50 Low back pain, unspecified
CPT/HCPCS: 76830; 80053; 81001; 81025; 83690; 83735; 84484; 85025; 85610; 85730; 86850; 96361; 96374; 96375; 99285; J0131; J1885; J7030